=== PATIENT | female | born 1990 | race Caucasian/White ===

== ENCOUNTER 2017-10-18 11:15 | Inpatient (IN) | payer OTHER ==
[2017-10-18] MEDS ORDERED: OXYTOCIN/NORMAL SALINE 20 UNIT/1,000 ML RTUINJ ONE (11:38)
[2017-10-18] MEDS ORDERED: LIDOCAINE 1% INJ-PF (10 MG/ML) 30 ML SDV ONE (11:38)
[2017-10-18] MEDS ORDERED: RINGERS SOLUTION,LACTATED 1,000 ML IV PRN (11:38)
[2017-10-18] MEDS ORDERED: RINGERS SOLUTION,LACTATED 1,000 ML IV ONE (11:38)
[2017-10-18] MEDS ORDERED: MISOPROSTOL 0.2 MG TABLET ONE (11:38)
[2017-10-18] MEDS ORDERED: DIPH/PERTUSS(ACELL)/TETANUS VAC/PF 0.5 ML SYR (>=10YO) IM PRN (12:28)
[2017-10-18] MEDS ORDERED: MAGNESIUM HYDROXIDE SUSP 30 ML UDCUP PO PRN (12:28)
[2017-10-18] MEDS ORDERED: OXYTOCIN/NORMAL SALINE 20 UNIT/1,000 ML RTUINJ IV PRN (12:28)
[2017-10-18] MEDS ORDERED: NA PHOS,M-B/NA PHOS,DI-BA (ADULT) 133 ML ENEMA PR PRN (12:28)
[2017-10-18] MEDS ORDERED: PROMETHAZINE HCL 25 MG TABLET PO PRN (12:28)
[2017-10-18] MEDS ORDERED: DIPHENHYDRAMINE HCL 25 MG CAPSULE PO PRN (12:28)
[2017-10-18] MEDS ORDERED: ACETAMINOPHEN WITH CODEINE #3 TABLET PO PRN ×2 (12:28)
[2017-10-18] MEDS ORDERED: BENZOCAINE/MENTHOL AEROSOL SPRAY 56 ML TOP PRN (12:28)
[2017-10-18] MEDS ORDERED: DIBUCAINE 1% OINTMENT 28 GM TP PRN (12:28)
[2017-10-18] MEDS ORDERED: GLYCERIN/WITCH HAZEL LEAF 1 EACH MED..PAD TP PRN (12:28)
[2017-10-18] MEDS ORDERED: ACETAMINOPHEN 325 MG TABLET PO PRN (12:28)
[2017-10-18] MEDS ORDERED: MEASLES,MUMPS&RUBELLA VACC/PF 0.5 ML VIAL SUBCUT PRN (12:28)
[2017-10-18] MEDS ORDERED: PSEUDOEPHEDRINE HCL 30 MG TABLET PO PRN (12:28)
[2017-10-18] MEDS ORDERED: PROMETHAZINE HCL 25 MG SUPP.RECT PR PRN (12:28)
[2017-10-18] MEDS ORDERED: ZOLPIDEM TARTRATE 5 MG TABLET PO PRN (12:28)
[2017-10-18] MEDS ORDERED: PROMETHAZINE HCL INJ 25 MG/1 ML VIAL IV PRN (12:28)
[2017-10-18 12:38] LABS: APPEARANCE,URINE SLIGHTLY-CLOUDY; BILIRUBIN,URINE NEGATIVE (NEGATIVE); COLOR,URINE YELLOW; GLUCOSE, URINE NEGATIVE (NEGATIVE); KETONES,URINE TRACE mg/dL (NEGATIVE); LEUKOCYTE ESTERASE,URINE SMALL (NEGATIVE); NITRITE,URINE NEGATIVE (NEGATIVE); PROTEIN,URINE NEGATIVE (NEGATIVE); URINE SPECIFIC GRAVITY 1.021; UROBILINOGEN,URINE NEGATIVE mg/dL (<2.0)
--- NOTE | 2017-10-18 12:42 | Admission Physical ---
Datetime Report Generated by CPN: 10/18/2017 12:42 CURRENT ADMISSION Chief Complaint: Uterine Contractions Indication for Induction: Not Applicable Admit Impression : Term, Intrauterine ; Active Labor; Intact Membranes Admit Plan: Admit to Unit; Initiate Labor Protocol ALLERGIES Medication Allergies: Yes Medication Allergies: erythromycin base (10/18/2017); ciprofloxacin (10/18/2017) Latex: No Latex Allergies Food Allergies: na Environmental Allergies: na OBSTETRICAL HISTORY EDC: 10/26/2017 00:00 : 2 Para: 1 Term: 1 : 0 SAB: 0 IAB: 0 Ectopic: 0 Livin Cesareans: 0 VBACs: 0 Multiple Births: 0 PHYSICAL EXAM General: Normal HEENT: Normal Neurologic: Normal Thyroid: Deferred Heart: Normal Lungs: Normal Breast: Deferred Back: Normal Abdomen: Normal Genitourinary Exam: Normal Extremities: Normal DTRs: Normal Pelvic Type: Adequate Vital Signs: Reviewed VAGINAL EXAM Dilatation: 8 Effacement: 90 Station: 1 Contraction Comments: Q 2-3 MEMBRANES Membranes: Intact FETUS A EGA: 38.6 Monitoring: External US FHR- Baseline: 140 Variability: Moderate 6-25bpm Accelerations: 15X15 Decelerations: None Presentation: Vertex Admit Comment: 27yo at 38+6ega presents to L_D with contractions since 0400 and then upon evaluation grossly SROM at 1146. Transfer of care at 30wks, Failed 1 hr GTT - passed 3 hr GTT, hypothyroid, Oral HSV. Admit to L_D. Anticipate . INFORMED CONSENT Informed Consent Obtained: Vaginal Delivery; Risks, Benefits and Alternatives Discussed Signature: with User ID: [email or web address]
[2017-10-18 12:56] LABS: URINE AMPHETAMINES SCREEN NEGATIVE; URINE BARBITURATES SCREEN NEGATIVE; URINE BENZODIAZEPINES SCREEN NEGATIVE; URINE COCAINE SCREEN NEGATIVE; URINE MARIJUANA (THC) SCREEN NEGATIVE; URINE METHADONE SCREEN NEGATIVE; URINE PHENCYCLIDINE SCREEN NEGATIVE
[2017-10-18 13:39] LABS: HEMATOCRIT 36.2 % (36.0-47.0); HEMOGLOBIN 12.4 g/dL (12.0-15.5); MEAN CORPUSCULAR HEMOGLOBIN 32.7 pg (27.0-33.4); MEAN CORPUSCULAR HGB CONC 34.1 g/dL (32.0-36.0); MEAN CORPUSCULAR VOLUME 96 fl (80-97); PLATELET COUNT 206 10^3/uL (150-450); RED BLOOD COUNT 3.78 10^6/uL (3.72-5.28); RED CELL DISTRIBUTION WIDTH 14.3 % (11.5-14.0); WHITE BLOOD COUNT 14.3 10^3/uL (4.0-10.5)
[2017-10-18 13:56] LABS: ABSOLUTE LYMPHOCYTES# (MANUAL) 0.6 10^3/uL (0.5-4.7); ABSOLUTE MONOCYTES # (MANUAL) 0.6 10^3/uL (0.1-1.4); ABSOLUTE NEUTROPHILS# (MANUAL) 13.2 10^3/uL (1.7-8.2); BASOPHILS % (MANUAL) 0 % (0-2); EOSINOPHILS % (MANUAL) 0 % (0-6); LYMPHOCYTES % (MANUAL) 4 % (13-45); MONOCYTES % (MANUAL) 4 % (3-13); SEGMENTED NEUTROPHILS % (MAN) 92 % (42-78); TOTAL CELLS COUNTED 100
[2017-10-18 14:03] LABS: TOXIC GRANULATION SLIGHT; TOXIC VACUOLATION PRESENT
[2017-10-18 14:04] LABS: ANISOCYTOSIS SLIGHT; OVALOCYTES SLIGHT; PLATELET COMMENT ADEQUATE; POIKILOCYTOSIS SLIGHT
[2017-10-18] MEDS: IBUPROFEN 800 MG TABLET PO SCH ×2 (14:28→21:02)
[2017-10-18] MEDS ORDERED: IBUPROFEN 800 MG TABLET ONE (14:28)
--- NOTE | 2017-10-18 15:44 | Delivery Summary ---
Del Sum A-C Datetime Report Generated by CPN: 10/18/2017 15:43 DELIVERY PERSONNEL DELIVERY PERSONNEL: [id number] Delivery Doctor:: Nette Murrell MD Labor and Delivery Nurse:: Sivan Grullon RNcytology technologist Nurse:: Shanelle Whitehead RN Kitchen Bath Designer/SENIOR HADOOP DEVELOPER: Sima Gayle, MOP WORKER MATERNAL INFORMATION Delivery Anesthesia: None Medications After Delivery: Pitocin Bolus-Please Comment Meds After Delivery Comment: Pitocin 20 units in 1 L NS bolusing per order Estimated Blood Loss (ml): 150 Maternal Complications: None; Precipitous Labor (<3hrs) Provider Comments: VMI delivered WERNER presentation. No nuchal cord. Shoulders and body delivered without difficulty. Cord doubly clamped and cut and infant to maternal abdomen for NRP. Placenta delivered intact spontaneously. No perineal lacerations. FF at U. Mother and baby stable upon providerleaving the room. LABOR SUMMARY EDC: 10/26/2017 00:00 No. Babies in Womb: 1 Attempted: No Labor Anesthesia: None LABOR INFORMATION Reason for Induction: Not Applicable Onset of Labor: 10/18/2017 04:00 Complete Dilatation: 10/18/2017 11:53 Oxytocin: N/A Group B Beta Strep: negative Antibiotics # of Doses: n/a Antibiotics Time of Last Dose: n/a Name of Antibiotic Given: n/a Steroids Given: None Reason Steroids Not Administered: Not Applicable MEMBRANES Membranes Rupture Method: Spontaneous Rupture of Membranes: 10/18/2017 11:47 Length of Rupture (hr): 0.38 Amniotic Fluid Color: Clear Amniotic Fluid Amount: Small Amniotic Fluid Odor: Normal STAGES OF LABOR Stage 1 hr: 7 Stage 1 min: 53 Stage 2 hr: 0 Stage 2 min: 17 Stage 3 hr: 0 Stage 3 min: 3 Total Time in Labor hr: 8 Total Time in Labor min: 13 VAGINAL DELIVERY Episiotomy: None Laceration #1: None Laceration Extension #1: N/A Laceration Repair: Not Applicable Sponge Count Correct: Yes Sharps Count Correct: Yes CSECTION DELIVERY Primary Indication: N/A Secondary Indication: N/A CSection Incidence: N/A Labor: N/A Elective: N/A CSection Incision: N/A BABY A INFORMATION Delivery Date/Time: 10/18/2017 12:10 Method of Delivery: Vaginal Born in Route : No : N/A Forceps: N/A Vacuum Extraction: N/A Shoulder Dystocia : No PRESENTATION/POSITION BABY A Presentation: Cephalic Cephalic Presentation: Vertex Breech Presentation: N/A PLACENTA INFORMATION BABY A Placenta Delivery Time : 10/18/2017 12:13 Placenta Method of Delivery: Spontaneous Placenta Status: Delivered SCORES BABY A Heart Rate 1 min: >100 bpm Resp Effort 1 min: Good Cry Reflex Irritability 1 min: Cough or Sneeze or Pulls Away Muscle Tone 1 min: Some Flexion of Extremities Color 1 min: Blue/Pale Resuscitation Effort 1 min: Tactile Stimulation SCORE 1 MIN: 7 Heart Rate 5 min: >100 bpm Resp Effort 5 min: Good Cry Reflex Irritability 5 min: Cough or Sneeze or Pulls Away Muscle Tone 5 min: Some Flexion of Extremities Color 5 min: Body [place], Extremities Blue Resuscitation Effort 5 min: Tactile Stimulation SCORE 5 MIN: 8 INFORMATION BABY A Gestational Age at Delivery: 38.6 Gestational Status: Early Term- 37- 38.6 Weeks Outcome : Liveborn Infant Condition : Stable Sex: Male IDENTIFICATION BABY A Verification Date/Time: 10/18/2017 12:19 ID Band Number: [id number] Mother's Name Verified: Yes Infant RN Verifying : Irasema Knight, RN, AKathya Navarro, RN WEIGHT/LENGTH BABY A Birthweight (gm): 3375 Infant Weight (lb): 7 Infant Weight (oz): 7 Infant Length (in): 19.50 Infant Length (cm): 49.53 CORD INFORMATION BABY A No. Cord Vessels: 3 Nuchal Cord : N/A (Annotations: Data stored by [facility] on behalf of user) Cord Blood Taken: Yes-For Eval (Mom's Blood Type - or O+) Suction: Mouth; Nose ASSESSMENT BABY A Complications: Multiple Variable Decels Physical Findings at Delivery: Within Normal Limits Respirations: Grunting Skin to Skin: Yes Skin to Skin Time (min): 20 Backbreaker/ALS Called : No Infant Care By: Celeste Whitehead RN Transferred To: [facility] BABY B INFORMATION : N/A SIGNATURES Signature: with User ID: [email or web address]
--- NOTE | 2017-10-18 15:45 | Delivery Summary ---
Del Sum A-C Datetime Report Generated by CPN: 10/18/2017 15:44 DELIVERY PERSONNEL DELIVERY PERSONNEL: [id number] Delivery Doctor:: Nette Murrell MD Labor and Delivery Nurse:: Sivan Grullon RNdietary aide cook Nurse:: Shanelle Whitehead RN Microfilm Machine Operator/MATRIX BATH ATTENDANT: Sima Gayle, LOAN DOCUMENTS CLOSER MATERNAL INFORMATION Delivery Anesthesia: None Medications After Delivery: Pitocin Bolus-Please Comment Meds After Delivery Comment: Pitocin 20 units in 1 L NS bolusing per order Estimated Blood Loss (ml): 150 Maternal Complications: None; Precipitous Labor (<3hrs) Provider Comments: VMI delivered WERNER presentation. No nuchal cord. Shoulders and body delivered without difficulty. Cord doubly clamped and cut and infant to maternal abdomen for NRP. Placenta delivered intact spontaneously. No perineal lacerations. FF at U. Mother and baby stable upon providerleaving the room. LABOR SUMMARY EDC: 10/26/2017 00:00 No. Babies in Womb: 1 Attempted: No Labor Anesthesia: None LABOR INFORMATION Reason for Induction: Not Applicable Onset of Labor: 10/18/2017 04:00 Complete Dilatation: 10/18/2017 11:53 Oxytocin: N/A Group B Beta Strep: negative Antibiotics # of Doses: n/a Antibiotics Time of Last Dose: n/a Name of Antibiotic Given: n/a Steroids Given: None Reason Steroids Not Administered: Not Applicable MEMBRANES Membranes Rupture Method: Spontaneous Rupture of Membranes: 10/18/2017 11:47 Length of Rupture (hr): 0.38 Amniotic Fluid Color: Clear Amniotic Fluid Amount: Small Amniotic Fluid Odor: Normal STAGES OF LABOR Stage 1 hr: 7 Stage 1 min: 53 Stage 2 hr: 0 Stage 2 min: 17 Stage 3 hr: 0 Stage 3 min: 3 Total Time in Labor hr: 8 Total Time in Labor min: 13 VAGINAL DELIVERY Episiotomy: None Laceration #1: None Laceration Extension #1: N/A Laceration Repair: Not Applicable Sponge Count Correct: Yes Sharps Count Correct: Yes CSECTION DELIVERY Primary Indication: N/A Secondary Indication: N/A CSection Incidence: N/A Labor: N/A Elective: N/A CSection Incision: N/A BABY A INFORMATION Delivery Date/Time: 10/18/2017 12:10 Method of Delivery: Vaginal Born in Route : No : N/A Forceps: N/A Vacuum Extraction: N/A Shoulder Dystocia : No PRESENTATION/POSITION BABY A Presentation: Cephalic Cephalic Presentation: Vertex Breech Presentation: N/A PLACENTA INFORMATION BABY A Placenta Delivery Time : 10/18/2017 12:13 Placenta Method of Delivery: Spontaneous Placenta Status: Delivered SCORES BABY A Heart Rate 1 min: >100 bpm Resp Effort 1 min: Good Cry Reflex Irritability 1 min: Cough or Sneeze or Pulls Away Muscle Tone 1 min: Some Flexion of Extremities Color 1 min: Blue/Pale Resuscitation Effort 1 min: Tactile Stimulation SCORE 1 MIN: 7 Heart Rate 5 min: >100 bpm Resp Effort 5 min: Good Cry Reflex Irritability 5 min: Cough or Sneeze or Pulls Away Muscle Tone 5 min: Some Flexion of Extremities Color 5 min: Body [place], Extremities Blue Resuscitation Effort 5 min: Tactile Stimulation SCORE 5 MIN: 8 INFORMATION BABY A Gestational Age at Delivery: 38.6 Gestational Status: Early Term- 37- 38.6 Weeks Outcome : Liveborn Infant Condition : Stable Sex: Male IDENTIFICATION BABY A Verification Date/Time: 10/18/2017 12:19 ID Band Number: [id number] Mother's Name Verified: Yes Infant RN Verifying : Irasema Knight, RN, AKathya Navarro, RN WEIGHT/LENGTH BABY A Birthweight (gm): 3375 Infant Weight (lb): 7 Infant Weight (oz): 7 Infant Length (in): 19.50 Infant Length (cm): 49.53 CORD INFORMATION BABY A No. Cord Vessels: 3 Nuchal Cord : N/A (Annotations: Data stored by [facility] on behalf of user) Cord Blood Taken: Yes-For Eval (Mom's Blood Type - or O+) Suction: Mouth; Nose ASSESSMENT BABY A Complications: Multiple Variable Decels Physical Findings at Delivery: Within Normal Limits Respirations: Grunting Skin to Skin: Yes Skin to Skin Time (min): 20 Button Facing Machine Operator/ALS Called : No Infant Care By: Celeste Whitehead RN Transferred To: [facility] BABY B INFORMATION : N/A SIGNATURES Signature: with User ID: [email or web address]
[2017-10-18] MEDS: FERROUS SULFATE 325 MG TABLET PO SCH (18:02)
[2017-10-18] MEDS: DOCUSATE SODIUM 100 MG CAPSULE PO SCH (18:02)
[2017-10-18] MEDS: FAMOTIDINE 20 MG TABLET PO SCH (21:01)
[2017-10-19] MEDS: IBUPROFEN 800 MG TABLET PO SCH ×2 (05:53→14:10)
[2017-10-19 07:10] LABS: HEMATOCRIT 33.5 % (36.0-47.0); HEMOGLOBIN 11.5 g/dL (12.0-15.5); MEAN CORPUSCULAR HEMOGLOBIN 33.1 pg (27.0-33.4); MEAN CORPUSCULAR HGB CONC 34.3 g/dL (32.0-36.0); MEAN CORPUSCULAR VOLUME 97 fl (80-97); PLATELET COUNT 192 10^3/uL (150-450); RED BLOOD COUNT 3.47 10^6/uL (3.72-5.28); RED CELL DISTRIBUTION WIDTH 14.5 % (11.5-14.0); WHITE BLOOD COUNT 13.8 10^3/uL (4.0-10.5)
[2017-10-19 08:42] VITALS: BP 103/58
--- NOTE | 2017-10-19 09:27 | PDOC PROGRESS REPORT ---
Subjective-OB Progress Note for:: 10/19/17 Subjective: 27yo G2 now P2 s/p ppd1. Voiding, ambulating and without difficulty. Pt. denies any needs at this time. Requesting early discharge Physical Exam (OB) Vital Signs: Temp Pulse Resp BP Pulse Ox 97.9 F 100 16 103/55 L 97 10/18/17 15:15 10/18/17 15:15 10/18/17 15:15 10/18/17 15:15 10/18/17 15:15 Intake & Output 10/18/17 10/19/17 10/20/17 06:59 06:59 06:59 Intake Total 500 Balance 500 Weight 77.7 kg - General General Appearance: Appears well In distress: None - PIH/Pre-Eclampsia Clonus: Negative Headache: Absent Epigastric Pain: No Visual Changes: No - Episiotomy/Laceration Site Condition: N/A - Lochia Lochia Amount: Scant < 10 ml Lochia Color: Rubra/Red - Abdomen Description: Soft, Round Hernia Present: No Fundal Description: Firm Fundal Height: u/u - u/2 - Respiratory Respiratory Status: No respiratory distress - Extremities Upper extremity: Normal inspection Lower extremities: Normal inspection Ankle: Normal - Neurological Cognition: Normal Orientation: AAOx4 - Psychological Associated symptoms: Normal affect, Normal mood Objective-Diagnostic Laboratory: 10/19/17 06:56 10/18/17 10/18/17 10/18/17 11:26 13:22 13:22 WBC 14.3 H RBC 3.78 Hgb 12.4 Hct 36.2 MCV 96 MCH 32.7 MCHC 34.1 RDW 14.3 H Plt Count 206 Seg Neutrophils % Not Reportable Lymphocytes % Not Reportable Monocytes % Not Reportable Eosinophils % Not Reportable Basophils % Not Reportable Absolute Neutrophils Not Reportable Absolute Lymphocytes Not Reportable Absolute Monocytes Not Reportable Absolute Eosinophils Not Reportable Absolute Basophils Not Reportable Urine Color YELLOW Urine Appearance SLIGHTLY-CLOUDY Urine pH 5.0 Ur Specific [place] 1.021 Urine Protein NEGATIVE Urine Glucose (UA) NEGATIVE Urine Ketones TRACE H Urine Blood LARGE H Urine Nitrite NEGATIVE Ur Leukocyte Esterase SMALL H Urine WBC (Auto) 18 Urine RBC (Auto) 12 Blood Type O POSITIVE Antibody Screen NEGATIVE 10/19/17 06:56 WBC 13.8 H RBC 3.47 L Hgb 11.5 L Hct 33.5 L MCV 97 MCH 33.1 MCHC 34.3 RDW 14.5 H Plt Count 192 Seg Neutrophils % Lymphocytes % Monocytes % Eosinophils % Basophils % Absolute Neutrophils Absolute Lymphocytes Absolute Monocytes Absolute Eosinophils Absolute Basophils Urine Color Urine Appearance Urine pH Ur Specific [place] Urine Protein Urine Glucose (UA) Urine Ketones Urine Blood Urine Nitrite Ur Leukocyte Esterase Urine WBC (Auto) Urine RBC (Auto) Blood Type Antibody Screen Assessment and Plan(PN) - Assessment and Plan (1) Vaginal delivery Is this a current diagnosis for this admission?: Yes Plan: routine pp care (2) Precipitate labor Is this a current diagnosis for this admission?: Yes Plan: routine pp care - Time Spent with Patient Time with patient: Less than 15 minutes Medications reviewed and adjusted accordingly: Yes - Disposition Anticipated Discharge: Home Within: within 24 hours - will be discharged today if ok'd by Peds.
[2017-10-19] MEDS: FERROUS SULFATE 325 MG TABLET PO SCH ×2 (09:42→18:54)
[2017-10-19] MEDS: FAMOTIDINE 20 MG TABLET PO SCH (09:43)
[2017-10-19] MEDS: DOCUSATE SODIUM 100 MG CAPSULE PO SCH ×2 (09:45→18:54)
[2017-10-19] MEDS ORDERED: PRENATAL VITAMIN W DHA CAPSULE PO SCH (10:00)
[2017-10-19] MEDS ORDERED: SENNOSIDES/DOCUSATE 8.6-50 MG 1 EACH TABLET PO SCH (10:00)
== END 2017-10-19 19:10 | disposition home or self-care (01) | DRG 774 ==
LOC: LC 11:15 → LR 11:41 → 2S 15:15
PROVIDERS: ADMIT Student in an Organized Health Care Education/Training Program; ATTEND Student in an Organized Health Care Education/Training Program
PROC: 10E0XZZ Delivery of Products of Conception, External Approach (ICD-10-PCS; principal; 2017-10-18)
DX: O99.284 Endocrine, nutritional and metabolic diseases complicating childbirth (principal); O98.52 Other viral diseases complicating childbirth; O62.3 Precipitate labor; O75.89 Other specified complications of labor and delivery; O76 Abnormality in fetal heart rate and rhythm complicating labor and delivery; E03.9 Hypothyroidism, unspecified; B00.1 Herpesviral vesicular dermatitis; Z3A.38 38 weeks gestation of pregnancy; Z37.0 Single live birth
CPT/HCPCS: 36415; 80307; 81001; 85025; 85027; 86592; 86850; 86900; 86901; J2590; J3490

== ENCOUNTER 2019-05-28 03:39 | Inpatient (IN) | payer OTHER ==
[2019-05-28] MEDS ORDERED: OXYTOCIN 10 UNIT/ML VIAL ONE (04:16)
[2019-05-28] MEDS ORDERED: LIDOCAINE 1% INJ-PF (10 MG/ML) 30 ML SDV ONE (04:17)
[2019-05-28] MEDS ORDERED: MISOPROSTOL 0.2 MG TABLET ONE (04:17)
[2019-05-28] MEDS ORDERED: OXYTOCIN/NORMAL SALINE 20 UNIT/1,000 ML RTUINJ ONE (04:17)
--- NOTE | 2019-05-28 04:48 | Admission Physical ---
Datetime Report Generated by CPN: 05/28/2019 04:48 CURRENT ADMISSION Chief Complaint: Uterine Contractions Indication for Induction: Not Applicable Admit Impression : Term, Intrauterine ; Active Labor; Intact Membranes Admit Plan: Admit to Unit; Initiate Labor Protocol ALLERGIES Medication Allergies: erythromycin base (10/18/2017); ciprofloxacin (10/18/2017) OBSTETRICAL HISTORY EDC: 06/05/2019 00:00 PHYSICAL EXAM General: Normal HEENT: Normal Neurologic: Normal Thyroid: Normal Heart: Normal Lungs: Normal Breast: Normal Back: Normal Abdomen: Normal Genitourinary Exam: Normal Extremities: Normal DTRs: Normal Pelvic Type: Adequate Vital Signs: Reviewed; Within Normal Limits VAGINAL EXAM Dilatation: 7-8 Effacement: 90 Station: 0 Contraction Comments: irrgeular MEMBRANES Membranes: Intact FETUS A EGA: 38.6 Monitoring: External US FHR- Baseline: 150s Variability: Moderate 6-25bpm Accelerations: 15X15 Decelerations: None FHR Category: Category I Admit Comment: w/ IUP at 38-5/7 weeks presents to L_D c/o contractions. She reports good movement. GBS Neg. No co-morbidities. INFORMED CONSENT Signature: with User ID: [email or web address]
[2019-05-28] MEDS ORDERED: RINGERS SOLUTION,LACTATED 1,000 ML IV ONE (05:30)
[2019-05-28 05:34] LABS: URINE AMPHETAMINES SCREEN NEGATIVE; URINE BARBITURATES SCREEN NEGATIVE; URINE BENZODIAZEPINES SCREEN NEGATIVE; URINE COCAINE SCREEN NEGATIVE; URINE MARIJUANA (THC) SCREEN NEGATIVE; URINE METHADONE SCREEN NEGATIVE; URINE PHENCYCLIDINE SCREEN NEGATIVE
[2019-05-28 05:35] LABS: ABSOLUTE EOSINOPHILS # (AUTO) 0.1 10^3/uL (0.0-0.6); ABSOLUTE LYMPHOCYTES (AUTO) 1.2 10^3/uL (0.5-4.7); ABSOLUTE MONOCYTES (AUTO) 0.7 10^3/uL (0.1-1.4); ABSOLUTE NEUT (AUTO) 7.3 10^3/uL (1.7-8.2); BASOPHILS % (AUTO) 0.4 % (0-2); EOSINOPHILS % (AUTO) 0.9 % (0-6); HEMATOCRIT 35.6 % (36.0-47.0); HEMOGLOBIN 12.3 g/dL (12.0-15.5); MEAN CORPUSCULAR HEMOGLOBIN 32.4 pg (27.0-33.4); MEAN CORPUSCULAR HGB CONC 34.6 g/dL (32.0-36.0); MEAN CORPUSCULAR VOLUME 94 fl (80-97); MONOCYTES % (AUTO) 7.3 % (3-13); PLATELET COUNT 211 10^3/uL (150-450); RED BLOOD COUNT 3.81 10^6/uL (3.72-5.28); RED CELL DISTRIBUTION WIDTH 13.9 % (11.5-14.0); SEGMENTED NEUTROPHILS % (AUTO) 78.4 % (42-78); TOTAL CELLS COUNTED % (AUTO) 100 %; WHITE BLOOD COUNT 9.3 10^3/uL (4.0-10.5)
[2019-05-28] MEDS ORDERED: BENZOCAINE/MENTHOL AEROSOL SPRAY 56 ML TOP PRN (05:59)
[2019-05-28] MEDS ORDERED: OXYTOCIN/NORMAL SALINE 20 UNIT/1,000 ML RTUINJ IV PRN (05:59)
[2019-05-28] MEDS ORDERED: ACETAMINOPHEN WITH CODEINE #3 TABLET PO PRN ×2 (05:59)
[2019-05-28] MEDS ORDERED: ZOLPIDEM TARTRATE 5 MG TABLET PO PRN (05:59)
[2019-05-28] MEDS ORDERED: DIPH/PERTUSS(ACELL)/TETANUS VAC/PF 0.5 ML SYR (>=10YO) IM PRN (05:59)
[2019-05-28] MEDS ORDERED: DIBUCAINE 1% OINTMENT 56 GM TP PRN (05:59)
--- NOTE | 2019-05-28 09:21 | Delivery Summary ---
Del Sum A-C Datetime Report Generated by CPN: 05/28/2019 09:21 DELIVERY PERSONNEL DELIVERY PERSONNEL: [id number] Delivery Doctor:: Morena Shi MD Labor and Delivery Nurse:: GUILLAUME Jacinto Labor and Delivery Nurse:: Rebecca Davison RN Electronic Lab Technician/CHANNEL DEVELOPMENT DIRECTOR: Laura Caden, ST MATERNAL INFORMATION Delivery Anesthesia: None Medications After Delivery: Pitocin Bolus-Please Comment Meds After Delivery Comment: Pitocin 20 units bolus Delivery QBL: 50 Maternal Complications: None Provider Comments: of a viable female at 0546 w/ an ALFREDO presentation; APGARS 8, 9; no lacs LABOR SUMMARY EDC: 06/05/2019 00:00 No. Babies in Womb: 1 Attempted: No Labor Anesthesia: None LABOR INFORMATION Reason for Induction: Not Applicable Onset of Labor: 05/28/2019 00:00 Complete Dilatation: 05/28/2019 05:40 Oxytocin: N/A Group B Beta Strep: negative Antibiotics # of Doses: 0 Steroids Given: None Reason Steroids Not Administered: Not Applicable MEMBRANES Membranes Rupture Method: Artificial Rupture of Membranes: 05/28/2019 05:40 Length of Rupture (hr): 0.10 Amniotic Fluid Color: Clear Amniotic Fluid Amount: Small Amniotic Fluid Odor: Normal STAGES OF LABOR Stage 1 hr: 5 Stage 1 min: 40 Stage 2 hr: 0 Stage 2 min: 6 Stage 3 hr: 0 Stage 3 min: 3 Total Time in Labor hr: 5 Total Time in Labor min: 49 VAGINAL DELIVERY Episiotomy: None Laceration #1: None Laceration Repair: Not Applicable Sponge Count Correct: Yes Sharps Count Correct: Yes CSECTION DELIVERY Primary Indication: N/A Secondary Indication: N/A CSection Incision: N/A BABY A INFORMATION Infant Delivery Date/Time: 05/28/2019 05:46 Method of Delivery: Vaginal Born in Route : No : N/A Forceps: N/A Vacuum Extraction: N/A Shoulder Dystocia : No PRESENTATION/POSITION BABY A Presentation: Cephalic Cephalic Presentation: Vertex Vertex Position: Right Occipital Anterior Breech Presentation: N/A PLACENTA INFORMATION BABY A Placenta Delivery Time : 05/28/2019 05:49 Placenta Method of Delivery: Spontaneous Placenta Status: Delivered SCORES BABY A Heart Rate 1 min: >100 bpm Resp Effort 1 min: Good Cry Reflex Irritability 1 min: Cough or Sneeze or Pulls Away Muscle Tone 1 min: Active [place] Color 1 min: Blue/Pale Resuscitation Effort 1 min: Tactile Stimulation SCORE 1 MIN: 8 Heart Rate 5 min: >100 bpm Resp Effort 5 min: Good Cry Reflex Irritability 5 min: Cough or Sneeze or Pulls Away Muscle Tone 5 min: Active Motion Color 5 min: Body [place], Extremities Blue Resuscitation Effort 5 min: Tactile Stimulation SCORE 5 MIN: 9 INFANT INFORMATION BABY A Gestational Age at Delivery: 38.6 Gestational Status: Early Term- 37- 38.6 Weeks Infant Outcome : Liveborn Infant Condition : Stable Sex: Female IDENTIFICATION BABY A Infant Verification Date/Time: 05/28/2019 06:28 ID Band Number: [id number] Mother's Name Verified: Yes Infant RN Verifying : rn marcus Additional Verifying Personnel: rn jeremiasstella WEIGHT/LENGTH BABY A Infant Birthweight (gm): 3461 Weight (lb): 7 Weight (oz): 10 Infant Length (in): 20.50 Length (cm): 52.07 CORD INFORMATION BABY A No. Cord Vessels: 3 Nuchal Cord : N/A Cord Blood Taken: Yes-For Eval (Mom's Blood Type - or O+) Suction: Mouth ASSESSMENT BABY A Infant Complications: None Physical Findings at Delivery: Within Normal Limits Respirations: Appears Normal Skin to Skin: Yes Technical Architect/ALS Called : No Transferred To: Remains with Mother BABY B INFORMATION : N/A SIGNATURES Signature: with User ID: [email or web address]
[2019-05-28] MEDS: SENNOSIDES/DOCUSATE 8.6-50 MG 1 EACH TABLET PO SCH (09:43)
[2019-05-28] MEDS: PRENATAL VITAMIN W DHA CAPSULE PO SCH (09:43)
[2019-05-28] MEDS: FERROUS SULFATE 325 MG TABLET PO SCH ×2 (09:43→17:14)
[2019-05-28] MEDS: DOCUSATE SODIUM 100 MG CAPSULE PO SCH ×2 (09:43→17:13)
[2019-05-28] MEDS: IBUPROFEN 800 MG TABLET PO SCH ×3 (09:45→21:24)
[2019-05-29 05:52] LABS: HEMATOCRIT 35.2 % (36.0-47.0); MEAN CORPUSCULAR HEMOGLOBIN 32.7 pg (27.0-33.4); MEAN CORPUSCULAR HGB CONC 34.2 g/dL (32.0-36.0); MEAN CORPUSCULAR VOLUME 96 fl (80-97); PLATELET COUNT 182 10^3/uL (150-450); RED BLOOD COUNT 3.67 10^6/uL (3.72-5.28); WHITE BLOOD COUNT 9.7 10^3/uL (4.0-10.5)
[2019-05-29] MEDS ORDERED: LEVOTHYROXINE SODIUM 0.025 MG TABLET PO SCH (06:00)
[2019-05-29] MEDS ORDERED: LEVOTHYROXINE SODIUM 0.1 MG TABLET PO SCH (06:00)
[2019-05-29] MEDS: IBUPROFEN 800 MG TABLET PO SCH ×2 (06:07→13:57)
[2019-05-29 08:13] VITALS: BP 94/55
[2019-05-29] MEDS ORDERED: MEASLES,MUMPS&RUBELLA VACC/PF 0.5 ML VIAL SUBCUT ONE ×2 (09:00→13:15)
[2019-05-29] MEDS: DOCUSATE SODIUM 100 MG CAPSULE PO SCH (09:40)
[2019-05-29] MEDS: PRENATAL VITAMIN W DHA CAPSULE PO SCH (09:40)
[2019-05-29] MEDS: SENNOSIDES/DOCUSATE 8.6-50 MG 1 EACH TABLET PO SCH (09:40)
[2019-05-29] MEDS: FERROUS SULFATE 325 MG TABLET PO SCH (09:40)
[2019-05-29] MEDS ORDERED: (PENDING PHARMACY ID) (Levothyroxine Sodium [Levothyroxine Sodium] 125 MCG) PO SCH (10:00)
--- NOTE | 2019-05-29 10:25 | PDOC PROGRESS REPORT ---
Subjective-OB Progress Note for:: 05/29/19 Subjective: Doing well, anxious to go home, breast feeding, voiding, scant bleeding Physical Exam (OB) Vital Signs: Temp Pulse Resp BP Pulse Ox 98.1 F 68 16 94/55 L 98 05/29/19 07:28 05/29/19 07:28 05/29/19 07:28 05/29/19 07:28 05/29/19 07:28 Intake & Output 05/28/19 05/29/19 05/30/19 06:59 06:59 06:59 Intake Total 1300 Balance 1300 - PIH/Pre-Eclampsia Headache: Absent Epigastric Pain: No Visual Changes: No - Lochia Lochia Amount: Scant < 10 ml Lochia Color: Rubra/Red - Abdomen Description: Soft, Round Fundal Description: Firm, Midline Fundal Height: u/u - u/2 Objective-Diagnostic Laboratory: 05/29/19 05:33 05/29/19 05:33 WBC 9.7 RBC 3.67 L Hgb 12.0 Hct 35.2 L MCV 96 MCH 32.7 MCHC 34.2 RDW 14.0 Plt Count 182 Assessment and Plan(PN) - Assessment and Plan (1) Precipitate labor Is this a current diagnosis for this admission?: Yes (2) Vaginal delivery Is this a current diagnosis for this admission?: Yes - Time Spent with Patient Time with patient: Less than 15 minutes Medications reviewed and adjusted accordingly: Yes - Disposition Anticipated Discharge: Home Within: within 24 hours
--- NOTE | 2019-05-29 10:29 | PDOC DISCHARGE SUMMARY ---
Impression - Admit/DC Date/PCP Admission Date/Primary Care Provider: 05/28/19 04:09 JYOTSNA LLAMAS Discharge Date: 05/29/19 - Discharge Diagnosis (1) Precipitate labor Is this a current diagnosis for this admission?: Yes (2) Vaginal delivery Is this a current diagnosis for this admission?: Yes - Additional Information Resuscitation Status: Full Code Discharge Diet: As Tolerated, Regular Discharge Activity: Activity As Tolerated, No Lifting Over 10 Pounds, No Lifting/Push/Pulling, Pelvic Rest Referrals: SHANA DEL ANGEL MD [ACTIVE STAFF] - (RTC 3 weeks) Home Medications: Vit,Calc78/Iron/Folic [Prenatabs FA Tablet] 1 each PO DAILY 10/18/17 Levothyroxine Sodium [Synthroid 0.025 mg Tablet] 0.025 mg PO Q6AM tablet 05/29/19 Levothyroxine Sodium [Synthroid 0.1 mg Tablet] 0.1 mg PO Q6AM tablet 05/29/19 HPI Gestational Age: 38.6 Reason(s) for Admission: Onset of Labor Procedures: Ultrasound Intrapartum Procedure(s): Spontaneous Vaginal Delivery - female, wt 7-10. apgars 8/9 Results Laboratory Results: WBC 9.7 10^3/uL (4.0-10.5) 05/29/19 05:33 RBC 3.67 10^6/uL (3.72-5.28) L 05/29/19 05:33 Hgb 12.0 g/dL (12.0-15.5) 05/29/19 05:33 Hct 35.2 % (36.0-47.0) L 05/29/19 05:33 MCV 96 fl (80-97) 05/29/19 05:33 MCH 32.7 pg (27.0-33.4) 05/29/19 05:33 MCHC 34.2 g/dL (32.0-36.0) 05/29/19 05:33 RDW 14.0 % (11.5-14.0) 05/29/19 05:33 Plt Count 182 10^3/uL (150-450) 05/29/19 05:33 Lymph % (Auto) 13.0 % (13-45) 05/28/19 05:24 [place] % (Auto) 7.3 % (3-13) 05/28/19 05:24 Eos % (Auto) 0.9 % (0-6) 05/28/19 05:24 Baso % (Auto) 0.4 % (0-2) 05/28/19 05:24 Absolute Neuts (auto) 7.3 10^3/uL (1.7-8.2) 05/28/19 05:24 Absolute Lymphs (auto) 1.2 10^3/uL (0.5-4.7) 05/28/19 05:24 Absolute Monos (auto) 0.7 10^3/uL (0.1-1.4) 05/28/19 05:24 Absolute Eos (auto) 0.1 10^3/uL (0.0-0.6) 05/28/19 05:24 Absolute Basos (auto) 0.0 10^3/uL (0.0-0.2) 05/28/19 05:24 Seg Neutrophils % 78.4 % (42-78) H 05/28/19 05:24 Urine Opiates Screen NEGATIVE 05/28/19 04:06 Urine Methadone Screen NEGATIVE 05/28/19 04:06 Ur Barbiturates Screen NEGATIVE 05/28/19 04:06 Ur Phencyclidine Scrn NEGATIVE 05/28/19 04:06 Ur Amphetamines Screen NEGATIVE 05/28/19 04:06 U Benzodiazepines Scrn NEGATIVE 05/28/19 04:06 Urine Cocaine Screen NEGATIVE 05/28/19 04:06 U Marijuana (THC) Screen NEGATIVE 05/28/19 04:06 Blood Type O POSITIVE 05/28/19 05:24 Antibody Screen NEGATIVE 05/28/19 05:24
--- NOTE | 2019-05-29 10:31 | PDOC DISCHARGE SUMMARY ---
Impression - Admit/DC Date/PCP Admission Date/Primary Care Provider: 05/28/19 04:09 JYOTSNA LLAMAS Discharge Date: 05/29/19 - Discharge Diagnosis (1) Precipitate labor Is this a current diagnosis for this admission?: Yes (2) Vaginal delivery Is this a current diagnosis for this admission?: Yes - Additional Information Resuscitation Status: Full Code Discharge Diet: As Tolerated, Regular Discharge Activity: Activity As Tolerated, No Lifting Over 10 Pounds, No Lifting/Push/Pulling, Pelvic Rest Referrals: SHANA DEL ANGEL MD [ACTIVE STAFF] - (RTC 3 weeks) Home Medications: Vit,Calc78/Iron/Folic [Prenatabs FA Tablet] 1 each PO DAILY 10/18/17 Levothyroxine Sodium [Synthroid 0.025 mg Tablet] 0.025 mg PO Q6AM tablet 05/29/19 Levothyroxine Sodium [Synthroid 0.1 mg Tablet] 0.1 mg PO Q6AM tablet 05/29/19 Hospital Course Hospital Course: routine Results Laboratory Results: WBC 9.7 10^3/uL (4.0-10.5) 05/29/19 05:33 RBC 3.67 10^6/uL (3.72-5.28) L 05/29/19 05:33 Hgb 12.0 g/dL (12.0-15.5) 05/29/19 05:33 Hct 35.2 % (36.0-47.0) L 05/29/19 05:33 MCV 96 fl (80-97) 05/29/19 05:33 MCH 32.7 pg (27.0-33.4) 05/29/19 05:33 MCHC 34.2 g/dL (32.0-36.0) 05/29/19 05:33 RDW 14.0 % (11.5-14.0) 05/29/19 05:33 Plt Count 182 10^3/uL (150-450) 05/29/19 05:33 Lymph % (Auto) 13.0 % (13-45) 05/28/19 05:24 [place] % (Auto) 7.3 % (3-13) 05/28/19 05:24 Eos % (Auto) 0.9 % (0-6) 05/28/19 05:24 Baso % (Auto) 0.4 % (0-2) 05/28/19 05:24 Absolute Neuts (auto) 7.3 10^3/uL (1.7-8.2) 05/28/19 05:24 Absolute Lymphs (auto) 1.2 10^3/uL (0.5-4.7) 05/28/19 05:24 Absolute Monos (auto) 0.7 10^3/uL (0.1-1.4) 05/28/19 05:24 Absolute Eos (auto) 0.1 10^3/uL (0.0-0.6) 05/28/19 05:24 Absolute Basos (auto) 0.0 10^3/uL (0.0-0.2) 05/28/19 05:24 Seg Neutrophils % 78.4 % (42-78) H 05/28/19 05:24 Urine Opiates Screen NEGATIVE 05/28/19 04:06 Urine Methadone Screen NEGATIVE 05/28/19 04:06 Ur Barbiturates Screen NEGATIVE 05/28/19 04:06 Ur Phencyclidine Scrn NEGATIVE 05/28/19 04:06 Ur Amphetamines Screen NEGATIVE 05/28/19 04:06 U Benzodiazepines Scrn NEGATIVE 05/28/19 04:06 Urine Cocaine Screen NEGATIVE 05/28/19 04:06 U Marijuana (THC) Screen NEGATIVE 05/28/19 04:06 Blood Type O POSITIVE 05/28/19 05:24 Antibody Screen NEGATIVE 05/28/19 05:24 Plan Health Concerns: routine Plan of Treatment: continue synthroid Goals: routine Time Spent: Less than 30 Minutes
== END 2019-05-29 13:50 | disposition home or self-care (01) | DRG 807 ==
LOC: LC 03:39 → LR 04:09 → 2S 09:01
PROVIDERS: ADMIT Obstetrics & Gynecology; ATTEND Obstetrics & Gynecology
PROC: 10E0XZZ Delivery of Products of Conception, External Approach (ICD-10-PCS; principal; 2019-05-28)
PROC: 3E0234Z Introduction of Serum, Toxoid and Vaccine into Muscle, Percutaneous Approach (ICD-10-PCS; 2019-05-29)
DX: O62.3 Precipitate labor (principal); Z37.0 Single live birth; O99.284 Endocrine, nutritional and metabolic diseases complicating childbirth; E03.9 Hypothyroidism, unspecified; Z3A.38 38 weeks gestation of pregnancy; Z23 Encounter for immunization
CPT/HCPCS: 36415; 80307; 85025; 85027; 86592; 86850; 86900; 86901; 90707; J2590; J3490